=== PATIENT | male | born 1965 | race Caucasian/White ===

== ENCOUNTER 2018-02-04 20:51 | Emergency (ER) | payer SELFPAY ==
[~2018-02-04 20:51] MED LIST: NICO21DI2 TD; OXYC30TA3 PO; XANA2TAB2 PO
[2018-02-04 20:55] VITALS: BP 172/103; PULSE 114; RESP 18; TEMP 97.9; O2SAT 99
--- NOTE | 2018-02-04 21:38 | RADRPT ---
EXAM DATE: 02/04/2018 9:33 PM EDT AGE/SEX: 52 years / Male INDICATIONS: Cough CLINICAL DATA: This is the patient's initial encounter. Patient reports that signs and symptoms have been present for 1 day and indicates a pain score of 0/10. MEDICAL/SURGICAL HISTORY: None. None. COMPARISON: No prior [place] exams available for comparison. FINDINGS: A single AP view of the chest demonstrates the lungs to be symmetrically aerated without evidence of mass, infiltrate or effusion. The cardiomediastinal contours are unremarkable. Osseous structures a re intact. CONCLUSION: No active disease. Electronically signed by: Ramesh Kaur MD 02/04/2018 9:37 PM EDT
--- NOTE | 2018-02-04 21:41 | PD ---
HPI Chief Complaint: Skin Problem Time Seen by Provider: 21:06 Travel History International Travel<30 days: No Contact w/Intl Traveler<30days: No Traveled to known affect area: No History of Present Illness HPI The patient is a 52 year old male who presents to the [facility] emergency department with a history of pain between his shoulder blades that he describes as a tightening sensation associated with tingling between his shoulder blades and increased numbness and tingling to the tops of his feet began 3 days ago. The patient reports a prior history complicated by an epidural abscess requiring extensive back surgery in April 2017 in [place]. The patient reports that he was on antibiotics for 6 weeks. At time. He reports that he moved to the area in July 2017 and is awaiting approval of his insurance, therefore he has not established with a primary care physician locally. He reports having chronic intermittent numbness and tingling to the left leg related to a prior history of sciatica. He denies having any new weakness to his arms or legs. He denies having any known fevers or night sweats. He denies having any recent weight loss. He denies using any IV drugs in the last year. He reports having a pain in the right upper posterior thorax that is coming and going. He reports having an occasional cough it has been no more productive than usual. The patient reports that he smokes one half to a pack of cigarettes per day. He denies having any shortness of breath. He denies having any abdominal pain, vomiting, or diarrhea. He denies having any urinary symptoms including urinary incontinence or stool incontinence. He reports that since his epidural abscess he has had problems with erectile dysfunction. On review of systems otherwise he denies having any neck pain or other neurologic symptoms. The patient incidentally also reports having a rash, palms of the hands for the last 3 months. He reports that it is itchy and intermittently kelly. He reports that it is worse in the left palm compared to the right. He is right-hand dominant. He denies working with chemicals regularly. [facility] Past Medical History Narrative Medical The patient's past medical history is significant for chronic neck and back pain , history of sciatica involving the left leg, history of an epidural abscess in April 2017. Arthritis: Yes Cardiovascular Problems: No Diminished Hearing: No Gastrointestinal Disorders: Yes (PARITINITIS) Genitourinary: No Musculoskeletal: Yes (TORN TENDON R SHOULDER) Neurologic: No Reproductive: No Respiratory: Yes Immunizations Current: Yes Past Surgical History Narrative Surgical The patient's past surgical history is significant for laparotomy related to peritonitis from a ruptured appendix at 15 years of age, left knee arthroscopy, extensive back surgery related to epidural abscess in April 2017. Abdominal Surgery: Yes ("five abdominal surgeries,two colonectomy's" three secondary to peritonitis) Appendectomy: Yes Neurologic Surgery: Yes (SPINAL ABSCESS) Oral Surgery: Yes (all teeth extracted) Social History Alcohol Use: Yes (6-PACK PER DAY) Tobacco Use: Yes (1PPD) Substance Use: No Allergies-Medications (Allergen,Severity, Reaction): Coded Allergies: No Known Allergies (Verified Adverse Reaction, Unknown, 02/04/18) Reported Meds & Prescriptions Reported Meds & Active Scripts Active Flexeril (Cyclobenzaprine HCl) 5 Mg Tab 5 Mg PO TID PRN EC-Naprosyn (Naproxen) 500 Mg Tabdr 500 Mg PO BID PRN Triamcinolone Topical (Triamcinolone Acetonide) 0.1 % Oint 1 Applic TOPICAL BID 30 Days Reported Nicoderm (Nicotine) 21 Mg/24 Hr Patch 1 Patch TD DAILY Xanax 2 mg (Alprazolam) 2 Mg Tab 2 Mg PO QHS Roxicodone (Oxycodone HCl) 30 Mg Tab 30 Mg PO 3-4X/DAY Review of Systems Except as stated in HPI: all other systems reviewed are Neg General / Constitutional: No: Fever Eyes: No: Visual changes HENT: No: Headaches, Congestion, Neck Stiffness, Neck Pain Cardiovascular: Positive: Chest Pain or Discomfort (Right posterior thorax) Respiratory: Positive: Cough, No: Shortness of Breath Gastrointestinal: No: Nausea, Vomiting, Diarrhea, Abdominal Pain Genitourinary: No: Dysuria Musculoskeletal: Positive: Pain Skin: Positive Rash, Positive Itching Neurologic: Positive: Paresthesia, Sensory Disturbance, No: Weakness, Focal Abnormalities, Change in Mentation, Slurred Speech Psychiatric: No: Depression Endocrine: No: Polydipsia Hematologic/Lymphatic: No: Easy Bruising Physical Exam Narrative General: The patient is a well-developed well-nourished male in no acute distress. Head and Neck exam: Head is normocephalic atraumatic. Eyes: EOMI, pupils are equal round and reactive to light. Nose: Midline septum with pink mucous membranes Mouth: Dentition unremarkable. Moist mucus membranes. Posterior oropharynx is not erythematous. No tonsillar hypertrophy. Uvula midline. Airway patent. Neck: No palpable lymphadenopathy. No nuchal rigidity. No thyromegaly. Cardiovascular: Sinus tachycardia in the 1 teens to low 100s without murmurs, gallops, or rubs. No pulse deficit to the extremities on simultaneous auscultation and palpation of his radial artery. Lungs: Clear to auscultation bilaterally. No wheezes, rhonchi, or rales. Abdomen: Soft, without tenderness to palpation in all 4 quadrants of the abdomen. No guarding, rebound, or rigidity. Normal bowel sounds are audible. No tenderness on palpation of McBurney's point. Negative Dolan sign. Extremities: No clubbing, cyanosis, or edema. 2+ pulses in all 4 extremities. No calf tenderness on palpation. Back: The patient reports spinous process tenderness to palpation along the mid to upper thoracic spine. No step-off or crepitus. No erythema or ecchymosis. The patient has scarring noted down throughout his entire spine from his prior back surgery. No costovertebral angle tenderness to palpation. Neurologic Exam: Cranial nerves 2-12 were intact on exam. Strength is 5/5 in all 4 extremities. No sensory deficits noted. Deep tendon reflexes are 2+ bilateral lower extremities. The patient reports having tingling sensations on the tops of bilateral feet. Skin Exam: The patient has dry skin noted on the palms of the hands with some peeling noted worse in the left palm compared to the right. No other rashes noted. No involvement of his feet. Intact skin that is warm and dry. Data Data Last Documented VS Vital Signs Date Time Temp Pulse Resp B/P (MAP) Pulse Ox O2 Delivery O2 Flow Rate FiO2 02/04/18 20:55 97.9 114 18 172/103 (126) 99 Orders Orders Electrocardiogram (02/04/18 21:07) Complete Blood Count With Diff (02/04/18 21:07) Comprehensive Metabolic Panel (02/04/18 21:07) Creatine Kinase (Cpk) (02/04/18 21:07) Ckmb (Isoenzyme) Profile (02/04/18 21:07) Troponin I (02/04/18 21:07) Prothrombin Time / Inr (Pt) (02/04/18 21:07) Act Partial Throm Time (Ptt) (02/04/18 21:07) Blood Culture (02/04/18 21:07) C-Reactive Protein (Crp) (02/04/18 21:07) Lipase (02/04/18 21:07) Urinalysis - C+S If Indicated (02/04/18 21:07) Westergren Sedimentation Rate (02/04/18 21:07) Magnesium (Mg) (02/04/18 21:07) Chest, Single Ap (02/04/18 21:07) Iv Access Insert/Monitor (02/04/18 21:07) Ecg Monitoring (02/04/18 21:07) Oximetry (02/04/18 21:07) Drug Screen, Random Urine (02/04/18 21:07) Alcohol (Ethanol) (02/04/18 21:07) Lactic Acid Sepsis Protocol (02/04/18 21:07) Mri C Spine W&W/O Contrast (02/04/18 ) Mri T Spine W & W/O Contrast (02/04/18 ) Mri L Spine W&W/O Contrast (02/04/18 ) CKMB (02/04/18 21:20) CKMB% (02/04/18 21:20) Gadodiamide Pf Inj (Omniscan Pf Inj) (02/04/18 22:36) Consult Neurosurgery (02/04/18 ) Ed Discharge Order (02/05/18 00:08) Labs Laboratory Tests Test 02/04/18 21:15 02/04/18 21:20 02/04/18 23:48 Lactic Acid Level 1.4 mmol/L White Blood Count 8.4 TH/MM3 Red Blood Count 4.56 MIL/MM3 Hemoglobin 15.6 GM/DL Hematocrit 43.9 % Mean Corpuscular Volume 96.2 FL Mean Corpuscular Hemoglobin 34.1 PG Mean Corpuscular Hemoglobin Concent 35.4 % Red Cell Distribution Width 13.0 % Platelet Count 298 TH/MM3 Mean Platelet Volume 7.7 FL Neutrophils (%) (Auto) 51.2 % Lymphocytes (%) (Auto) 33.3 % Monocytes (%) (Auto) 9.5 % Eosinophils (%) (Auto) 4.8 % Basophils (%) (Auto) 1.2 % Neutrophils # (Auto) 4.3 TH/MM3 Lymphocytes # (Auto) 2.8 TH/MM3 Monocytes # (Auto) 0.8 TH/MM3 Eosinophils # (Auto) 0.4 TH/MM3 Basophils # (Auto) 0.1 TH/MM3 CBC Comment DIFF FINAL Differential Comment Erythrocyte Sedimentation Rate 1 mm/hr Prothrombin Time 9.7 SEC Prothromb Time International Ratio 1.0 RATIO Activated Partial Thromboplast Time 26.6 SEC Blood Urea Nitrogen 14 MG/DL Creatinine 0.93 MG/DL Random Glucose 77 MG/DL Total Protein 7.6 GM/DL Albumin 4.1 GM/DL Calcium Level 9.1 MG/DL Magnesium Level 1.9 MG/DL Alkaline Phosphatase 129 U/L Aspartate Amino Transf (AST/SGOT) 45 U/L Alanine Aminotransferase (ALT/SGPT) 65 U/L Total Bilirubin 0.4 MG/DL Sodium Level 137 MEQ/L Potassium Level 3.9 MEQ/L Chloride Level 103 MEQ/L Carbon Dioxide Level 24.5 MEQ/L Anion Gap 10 MEQ/L Estimat Glomerular Filtration Rate 85 ML/MIN Total Creatine Kinase 176 U/L Creatine Kinase MB 2.8 NG/ML Troponin I LESS THAN 0.02 NG/ML C-Reactive Protein LESS THAN 0.29 MG/DL Lipase 127 U/L Ethyl Alcohol Level 46 MG/DL Urine Color LIGHT-YELLOW Urine Turbidity CLEAR Urine pH 5.5 Urine Specific Millis 1.010 Urine Protein NEG mg/dL Urine Glucose (UA) NEG mg/dL Urine Ketones NEG mg/dL Urine Occult Blood NEG Urine Nitrite NEG Urine Bilirubin NEG Urine Urobilinogen LESS THAN 2.0 MG/DL Urine Leukocyte Esterase NEG Urine RBC LESS THAN 1 /hpf Urine WBC 1 /hpf Urine Mucus FEW /lpf Microscopic Urinalysis Comment CULT NOT INDICATED Urine Opiates Screen NEG Urine Barbiturates Screen NEG Urine Amphetamines Screen POS Urine Benzodiazepines Screen NEG Urine Cocaine Screen NEG Urine Cannabinoids Screen NEG MDM Medical Decision Making Medical Screen Exam Complete: Yes Emergency Medical Condition: Yes Medical Record Reviewed: Yes Differential Diagnosis Epidural abscess, versus osteomyelitis, exacerbation of chronic pain, versus musculoskeletal strain Narrative Course During the course of the patient's emergency department visit, the patient's history, examination, and differential diagnosis were reviewed with the patient. The patient was placed on a cardiac catheterization technologist with oximetry and frequent blood pressure monitoring. The patient had IV access obtained and blood work sent for analysis. The patient had an EKG done on arrival that shows a sinus tachycardia rate of 107, QRS duration 94 ms, QTC 387 ms. An incomplete right bundle branch block is noted. No acute ST segment elevation is noted. T waves are inverted in lead III, V1. The patient's laboratory studies were reviewed and remarkable for a white count of 8.4, hemoglobin 15.6, platelets 298 with 9.5 monocytes, sedimentation rate is 1. CMP is remarkable for GFR of 85, AST 45, alk phos 129, cardiac enzymes within normal limits, C-reactive protein is less than 0.29, lipase 127, lactic acid within normal limits at 1.4. PT 9.7, PTT 26.6, urinalysis is within normal limits. Urine drug screen is positive for amphetamines, alcohol level is 46. Radiology studies were reviewed and remarkable for Last Impressions Chest X-Ray 02/04/[id number] Signed Impressions: CONCLUSION: No active disease. Thoracic Spine MRI 02/04/18 0000 Signed Impressions: CONCLUSION: 1. At T5-6 there is a small central disc protrusion with a mild impression on the cord. 2. At T9-T10 there is a mild disc bulge without cord impingement. 3. No abnormal enhancing lesions within the canal postcontrast. No abnormal fl uid collections. No cord signal abnormalities. No acute fracture. Lumbar Spine MRI 02/04/18 0000 Signed Impressions: CONCLUSION: 1. Neural foraminal compromise bilateral L3-4, bilateral L4-5, bilateral L5-S1 worse at L5-S1. 2. There is abnormal marrow edema involving the left pedicle of L4 with involv ement of the facets L4-5 and L5-S1 on the left side in addition to enhancement of the soft tissues and interspinous distance at L3-4 L4-5 mainly towards the l eft side as well. There is no evidence for popliteal abscess. Findings are nons pecific could be traumatic related to prior surgery or possibly slightly inflam matory/infectious process without definable abscess. Cervical Spine MRI 02/04/18 0000 Signed Impressions: CONCLUSION: 1. No acute findings. No abnormal enhancement or abnormal fluid collections. N ormal alignment. Minimal disc bulges as above. I spoke to Dr. Chavez by phone at approximately 11:25 PM regarding the patient' s T spine and Lumbar spine abnormalities. He explained that no further intervention would be required at this time. He reported that the patient does not need to follow-up with a neurosurgeon, just a primary care physician for continued treatment of pain. Given the patient's findings on the lumbar spine MRI, I requested that he review the patient's MRI findings. He explained that this is not necessary as the patient's sedimentation rate and CRP are within normal limits. The patient will be given information regarding the [facility] for follow-up with him in the next 2 days for reexamination and continuation of his primary care. The patient will be discharged home with a prescription for Naprosyn, Flexeril, and topical steroids for what appears to be dyshidrotic eczema of his hands. The patient is resting comfortably and feels better, is alert and in no distress. The patient's results and examination findings were discussed with the patient. The repeat examination is unremarkable and benign. The history, exam, diagnostic testing, and current condition do not suggest any significant pathology to warrant further testing, continued ED treatment, admission, or surgical evaluation at this point. The vital signs have been stable. The patient does not have uncontrollable pain, intractable vomiting, or other significant symptoms. The patient's condition is stable and appropriate for discharge. The patient will pursue further outpatient evaluation with a primary care physician or other designated or consulting physician as indicated in the discharge instructions. The patient is instructed to report back to the emergency department immediately for reexamination in the mean time if he/ she develops any new or worsening signs or symptoms. The patient expressed understanding and was agreeable with this plan. Physician Communication Physician Communication The patient's case including history, pertinent physical examination findings, and laboratory studies were discussed with . It was agreed that the patient would be admitted to the [] hospitalist service. Diagnosis Primary Impression: Paresthesias Additional Impressions: Back pain Qualified Codes: M54.6 - Pain in thoracic spine Dyshidrotic eczema Referrals: [facility] 2 days Patient Instructions: Back Pain (ED), Dyshidrotic Eczema (ED), General Instructions, Paresthesia (ED) Med/Other Pt SpecificInfo: Prescription(s) given Scripts Cyclobenzaprine (Flexeril) 5 Mg Tab 5 MG PO TID Y for SPASM, #12 TAB 0 Refills Prov: Macey Rodriguez MD 02/04/[address] (EC-Naprosyn) 500 Mg Tabdr 500 MG PO BID Y for PAIN SCALE 5 TO 10, #10 TAB 0 Refills Prov: Macey Rodriguez MD 02/04/18 Triamcinolone Topical (Triamcinolone Topical) 0.1 % Oint 1 APPLIC TOPICAL BID for Inflammation for 30 Days, GM 0 Refills Prov: Macey Rodriguez MD 02/04/18 Disposition: 01 DISCHARGE HOME Condition: Stable Macey Rodriguez MD February 04, 2018 21:41
[2018-02-04 21:50] LABS: AUTOMATED NEUTROPHIL # 4.3 TH/MM3 (1.8-7.7); BASOPHIL # 0.1 TH/MM3 (0-0.2); BASOPHIL % 1.2 % (0.0-2.0); EOSINOPHIL # 0.4 TH/MM3 (0-0.4); EOSINOPHIL % 4.8 % (0.0-4.0); HEMATOCRIT 43.9 % (39.0-51.0); HEMOGLOBIN 15.6 GM/DL (13.0-17.0); LYMPH % 33.3 % (9.0-44.0); LYMPHOCYTE # 2.8 TH/MM3 (1.0-4.8); MEAN CELL VOLUME 96.2 FL (80.0-100.0); MEAN CORPUSCULAR HEMOGLOBIN 34.1 PG (27.0-34.0); MEAN CORPUSCULAR HGB CONC 35.4 % (32.0-36.0); MEAN PLATELET VOLUME 7.7 FL (7.0-11.0); MONO % 9.5 % (0.0-8.0); MONOCYTE # 0.8 TH/MM3 (0-0.9); NEUT % 51.2 % (16.0-70.0); PLATELET COUNT 298 TH/MM3 (150-450); RED BLOOD COUNT 4.56 MIL/MM3 (4.50-5.90); WHITE BLOOD COUNT 8.4 TH/MM3 (4.0-11.0)
[2018-02-04 21:59] LABS: PROTHROMBIN TIME - PATIENT 9.7 SEC (9.8-11.6)
[2018-02-04 22:15] LABS: ALT (GPT) 65 U/L (12-78); C-REACTIVE PROTEIN LESS THAN 0.29 MG/DL (0.00-0.30)
[2018-02-04 22:18] LABS: ALKALINE PHOSPHATASE 129 U/L (45-117); TOTAL BILIRUBIN ADULT 0.4 MG/DL (0.2-1.0); TOTAL PROTEIN 7.6 GM/DL (6.4-8.2); TROPONIN I LESS THAN 0.02 NG/ML (0.02-0.05)
[2018-02-04 22:20] LABS: ALBUMIN 4.1 GM/DL (3.4-5.0); AST (GOT) 45 U/L (15-37); BICARBONATE 24.5 MEQ/L (21.0-32.0); BLOOD UREA NITROGEN 14 MG/DL (7-18); CALCIUM 9.1 MG/DL (8.5-10.1); CHLORIDE 103 MEQ/L (98-107); CREATININE 0.93 MG/DL (0.60-1.30); GLOMERULAR FILTRATION RATE 85 ML/MIN (>89); GLUCOSE,RANDOM 77 MG/DL (74-106); MAGNESIUM 1.9 MG/DL (1.5-2.5); SODIUM (NA) 137 MEQ/L (136-145)
[2018-02-04] MEDS ORDERED: GADODIAMIDE PF 287 MG/ML 20 ML VIAL (for RAD MRI) IVCONTRAST ONE (22:36)
--- NOTE | 2018-02-04 23:02 | RADRPT ---
EXAM DATE: 02/04/2018 10:58 PM EDT AGE/SEX: 52 years / Male INDICATIONS: Abscess. CLINICAL DATA: This is the patient's initial encounter. Patient reports that signs and symptoms have been present for 1 day and indicates a pain score of 3/10. MEDICAL/SURGICAL HISTORY: None. Appendectomy. Spinal abcess.04/2017 COMPARISON: No prior [place] exams available for comparison. TECHNIQUE: Multiplanar, multisequence MRI of the thoracic spine was performed without and with 18cc ml Omniscan (gadodiamide) contrast as a single exam dose. FINDINGS: No significant abnormality at T1-5. At T5-6 there is a small central disc protrusion with mild impres juli on the cord. No significant abnormality at T6-7-8. At T9-10 there is a mild disc bulge or protrusion effacing the anterior thecal sac without cord compr ession. At [id number] there is no significant abnormality. No abnormal fluid collections identified within the thoracic cord. No abnormal enhancing lesions post contrast. CONCLUSION: 1. At T5-6 there is a small central disc protrusion with a mild impression on the cord. 2. At T9-T10 there is a mild disc bulge without cord impingement. 3. No abnormal enhancing lesions within the canal postcontrast. No abnormal fluid collections. No co rd signal abnormalities. No acute fracture. Electronically signed by: Ramesh Kaur MD 02/04/2018 11:01 PM EDT
--- NOTE | 2018-02-04 23:13 | RADRPT ---
EXAM DATE: 02/04/2018 10:59 PM EDT AGE/SEX: 52 years / Male INDICATIONS: Abscess. CLINICAL DATA: This is the patient's initial encounter. Patient reports that signs and symptoms have been present for 1 day and indicates a pain score of 3/10. MEDICAL/SURGICAL HISTORY: None. Appendectomy. Spinal abscess 04/2017 COMPARISON: No prior [place] exams available for comparison. TECHNIQUE: Multiplanar, multisequence MRI examination of the cervical spine was performed without an d with 18cc ml Omniscan (gadodiamide) contrast as a single exam dose. FINDINGS: There is normal alignment of the cervical spine. Posterior laminectomies are noted in the mid cervica l spine. Mild disc bulges at C4-5-6 but without significant canal stenosis. No cord impingement. No a bnormal fluid collections within the canal. No abnormal enhancement within the cervical canal. No fra cture. CONCLUSION: 1. No acute findings. No abnormal enhancement or abnormal fluid collections. Normal alignment. Minim al disc bulges as above. Electronically signed by: Ramesh Kaur MD 02/04/2018 11:12 PM EDT
--- NOTE | 2018-02-04 23:22 | RADRPT ---
EXAM DATE: 02/04/2018 11:06 PM EDT AGE/SEX: 52 years / Male INDICATIONS: Abscess. CLINICAL DATA: This is the patient's initial encounter. Patient reports that signs and symptoms have been present for 1 day and indicates a pain score of 2/10. MEDICAL/SURGICAL HISTORY: None. Appendectomy. Spinal abscess 04/2017 COMPARISON: No prior exams available for comparison. TECHNIQUE: Multiplanar, multisequence MRI examination of the lumbar spine was performed without and with 18cc ml Omniscan (gadodiamide) contrast as a single exam dose. FINDINGS: The most caudal-appearing lumbar vertebra is numbered as L5. There is marrow edema involving the left L4-5 and L5-S1 facets partially extending into the pedicle of L4 on the left side. No significant co mpression deformities, spondylolisis, or spondylolesthesis is seen. L1-L2: No appreciable compromise to the thecal sac, or the exiting nerve roots is seen. The neural foramina and lateral recesses are patent bilaterally. L2-L3: Significant degenerative changes present in disc space at this level. No significant thecal s ac stenosis is seen. Asymmetrical bulging disc is present towards the left with partial extension int o the left neural foramen slightly abutting the exiting nerve root. L3-L4: Slight degenerative changes are present in the disc space and facets. There is slight neural foramina compromise bilaterally due to bulging disc and hypertrophic changes. No appreciable thecal sac stenosis is seen. L4-L5: Slight degenerative changes are present in the disc space and facets. There is slight neural foramina compromise bilaterally due to bulging disc and hypertrophic changes. No appreciable thecal sac stenosis is seen. There is slight enhancement in the interspinous distance at this level dorsall y partially extending to the above-mentioned area of marrow edema. Findings could be sequelae of prio r abscess and there is no evidence for abscess formation at this time. Slight inflammatory process an d infectious process however is difficult to exclude. This process partially extends to the level of L3-4 as well. L5-S1: There is moderate neural foramina compromise bilaterally due to bulging disc and hypertrophi c changes. Significant facet arthrosis is seen at this level. No significant thecal sac stenosis is seen. CONCLUSION: 1. Neural foraminal compromise bilateral L3-4, bilateral L4-5, bilateral L5-S1 worse at L5-S1. 2. There is abnormal marrow edema involving the left pedicle of L4 with involvement of the facets L4 -5 and L5-S1 on the left side in addition to enhancement of the soft tissues and interspinous distanc e at L3-4 L4-5 mainly towards the left side as well. There is no evidence for popliteal abscess. Find ings are nonspecific could be traumatic related to prior surgery or possibly slightly inflammatory/in fectious process without definable abscess. Electronically signed by: Edin Anderson MD 02/04/2018 11:21 PM EDT
[2018-02-04] MEDS ORDERED: TRIAM.1%T TOPICAL (23:53)
[2018-02-04] MEDS ORDERED: NAPR-810 PO (23:56)
[2018-02-04] MEDS ORDERED: CYCL5TAB PO (23:56)
[2018-02-04 23:58] LABS: BILIRUBIN, URINE NEG (NEG); BLOOD, URINE NEG (NEG); GLUCOSE,URINE NEG (NEG); KETONE, URINE NEG (NEG); MUCUS URINE FEW /lpf (OCC); NITRITE,URINE NEG (NEG); PH, URINE 5.5 (5.0-8.5); URINE COLOR LIGHT-YELLOW (YELLW/STRAW); URINE LEUKOCYTE ESTERASE NEG (NEG)
[2018-02-05 00:24] VITALS: BP 145/88; PULSE 78; RESP 16; O2SAT 97
--- NOTE | 2018-02-05 14:11 | EKG ---
Date Performed: 02/04/2018 Time Performed: 21:27:53 PTAGE: 52 years EKG: SINUS TACHYCARDIA INCOMPLETE RIGHT BUNDLE BRANCH BLOCK ABNORMAL RHYTHM ECG PREVIOUS TRACING : 02/04/2018 21.23 Since the previous tracing, no significant change noted DOCTOR: Bernardo Newby Interpretating Date/Time 02/05/2018 14:04:53
== END 2018-02-05 00:28 | disposition home or self-care (01) ==
LOC: NEPE 20:51
DX: R20.2 Paresthesia of skin (principal); M54.6 Pain in thoracic spine; L30.1 Dyshidrosis [pompholyx]; R00.0 Tachycardia, unspecified; R94.31 Abnormal electrocardiogram [ECG] [EKG]; N52.9 Male erectile dysfunction, unspecified; M19.90 Unspecified osteoarthritis, unspecified site; F17.210 Nicotine dependence, cigarettes, uncomplicated; F10.20 Alcohol dependence, uncomplicated; F15.90 Other stimulant use, unspecified, uncomplicated; Y90.2 Blood alcohol level of 40-59 mg/100 ml; Z79.899 Other long term (current) drug therapy
CPT/HCPCS: 71045; 72156; 72157; 72158; 80053; 80307; 81001; 82550; 82552; 83605; 83690; 83735; 84484; 85025; 85610; 85652; 85730; 86140; 87040; 93005; 99285; A9579